=== PATIENT | male | born 1960 | race Caucasian/White ===

== ENCOUNTER 2016-06-12 18:59 | Inpatient (IN) | payer MEDICAID ==
--- NOTE | 2016-06-12 19:40 | EDPHY ---
H & P Stated Complaint: d/c from [facility] w/ MRSA to scrotum/buttocks concerned with drainage Time Seen by Provider: 06/12/16 19:28 HPI/ROS: CHIEF COMPLAINT: Scrotal and rectal abscess HISTORY OF PRESENT ILLNESS: The patient is a 56-year-old homeless man who presents to the emergency department with a scrotal abscess. He was discharged from [facility] where he had spent 2 days being treated with IV vancomycin and discharged today and doxycycline. He did not have any I and D or surgery. He was admitted to this hospital 3 years ago for similar infection. There was some concern for foreign use gangrene but it never developed. He was managed by Urology in the operating room and on IV vancomycin and discharged on doxycycline. He is currently afebrile. REVIEW OF SYSTEMS: Constitutional: denies: chills, fever, recent illness, recent injury EENTM: denies: blurred vision, double vision, nose congestion Respiratory: denies: cough, shortness of breath Cardiac: denies: chest pain, irregular heart rate, lightheadedness, palpitations Gastrointestinal/Abdominal: denies: abdominal pain, diarrhea, nausea, vomiting, blood streaked stools Genitourinary: denies: dysuria, frequency, hematuria, pain Musculoskeletal: denies: joint pain, muscle pain Skin: See HPI Neurological: denies: headache, numbness, paresthesia, tingling, dizziness, weakness Hematologic/Lymphatic: denies: blood clots, easy bleeding, easy bruising Immunologic/allergic: denies: HIV/AIDS, transplant EXAM: GENERAL: Well-appearing, well-nourished and in no acute distress. HEAD: Atraumatic, normocephalic. EYES: Pupils equal round and reactive to light, extraocular movements intact, sclera anicteric, conjunctiva are normal. ENT: TMs normal, nares patent, oropharynx clear without exudates. Moist mucous membranes. NECK: Normal range of motion, supple without lymphadenopathy or JVD. LUNGS: Breath sounds clear to auscultation bilaterally and equal. No wheezes rales or rhonchi. HEART: Regular rate and rhythm without murmurs, rubs or gallops. ABDOMEN: Soft, nontender, normoactive bowel sounds. No guarding, no rebound. No masses appreciated. : Patient has 3 abscesses to his scrotum 1 that is fairly large approximately 3 x 2 cm. Obvious purulent drainage when palpated. Also a the moderately large perirectal abscess. None of these have been drained. BACK: No CVA tenderness, no spinal tenderness, step-offs or deformities EXTREMITIES: Normal range of motion, no pitting or edema. No clubbing or cyanosis. NEUROLOGICAL: Cranial nerves II through XII grossly intact. Normal speech, normal gait. 5/5 strength, normal movement in all extremities, normal sensation PSYCH: Normal mood, normal affect. SKIN: See above Source: Patient Exam Limitations: No limitations - Personal History Current Tetanus/Diphtheria Vaccine: Unsure Current Tetanus Diphtheria and Acellular Pertussis (TDAP): Unsure Tetanus Vaccine Date: < 10 years - Medical/Surgical History Hx Asthma: No Hx Chronic Respiratory Disease: No Hx Diabetes: No Hx Cardiac Disease: No Hx Renal Disease: No Hx Cirrhosis: No Hx Alcoholism: No Hx HIV/AIDS: No Hx Splenectomy or Spleen Trauma: No Other PMH: ortho surg, back surgery, ankle and hand surgery - Family History Significant Family History: No pertinent family hx - Social History Smoking Status: Current some day smoker Alcohol Use: Sober Drug Use: None Constitutional: Initial Vital Signs Temperature (C) 36.3 C 06/12/16 19:01 Heart Rate 101 H 06/12/16 19:01 Respiratory Rate 18 06/12/16 19:01 Blood Pressure 152/95 H 06/12/16 19:01 O2 Sat (%) 96 06/12/16 19:01 O2 Delivery Mode Room Air Allergies/Adverse Reactions: cyclobenzaprine HCl [From Flexeril] Allergy (Intermediate, Verified 06/12/16 21: 54) Hives Home Medications: Medication Instructions Recorded Doxycycline Monohydrate [Monodox] 100 mg PO BID 06/12/16 Medical Decision Making ED Course/Re-evaluation: 7:45 p.m. I spoke with Dr. Christopher Graves who recommended we consult Urology 1st because this was managed by Dr. Bui previously. 8:[address] Graves is here to evaluate. 8:15 p.m. I spoke with Dr. Khai Fuentes who is on-call for Dr. Bui. He suggested admission and consultation tomorrow. 8:[address] Mason's saw the patient and will take to the OR for perianal abscess. He plans to defer to Urology for the scrotal abscess. We will obtain a vancomycin trough prior to administration of antibiotics. 8:[address] Fuentes from Urology about plan to go to the OR tonight. He will consult. Differential Diagnosis: Partial list of the Differential diagnosis considered include but were not limited to; abscess, for knees gangrene, cellulitis and although unlikely based on the history and physical exam, I also considered kidney stone, urinary tract infection. - Data Points Medications Given: Discontinued Medications Tetanus/Diphtheria Toxoids Adsorbed (Tetanus-Diphtheria Tenivac) 0.5 ml IM .ONCE ONE Stop: 06/12/16 21:10 Last Admin: 06/12/16 22:21 Dose: 0.5 ml Departure - Departure Disposition: [facility] Inpatient Acute Clinical Impression: Abscess Condition: Fair
[2016-06-12] MEDS ORDERED: ACETAMINOPHEN 500 MG TAB PO PRN (20:42)
[2016-06-12] MEDS ORDERED: LR 1,000 ML IV SCH (21:00)
--- NOTE | 2016-06-12 21:04 | PDCONSULT ---
Cash Reconciliation Specialist Note: CC: scrotal/perianal abscess HPI: 56 y/o male presented to the ED with worsening scrotal and perianal abscesses. He was admitted to [facility] 06/10 and treated with Vancomycin. A CT of the abdomen/pelvis and scrotal ultrasound were performed. Nasal swabs were + for MRSA. Surgical consultation did not recommend drainage and he was discharged today with oral Doxycycline. He subsequently felt worse and presented to [facility] ED for further care. He was seen by Dr. Mcduffie and surgical consultation was requested. He was admitted here in 2013 for drainage of multiple scrotal abscesses by Dr. Bui that cultured + for MRSA. 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 He does not drive a car and commutes on his bicycle daily ROS: + weight loss + nail gun wound left hand last week denies melena, hematochezia, dysuria, hematuria Patient had a full meal (stopped at [employer]) at 7:00 PE: pleasant, tearful gentleman in mild distress HEENT: negative icterus/adenopathy lungs: clear CVS: RRR abd: soft w/out HSM, tenderness : multiple fluctuant scrotal abscess 1-2 cm, tender with some early drainage rectal: right sharon-anal abscess 2 cm, tender and fluctuant ext: tracks from IVDA L AC/nail gun wound right hand without erythema lab pending Imp: multiple scrotal and sharon-anal abscesses + nasal swab for MRSA prior scrotal abscesses + MRSA IVDA Rec: operative drainage multiple scrotal and sharon-anal abscess Vanco trough IV Invanz ID consult requested/discussed with Dr. Jean Paul Graves MD, FACS
[2016-06-12] MEDS ORDERED: TETANUS, DIPHTHERIA TOX (7YR+) 0.5 ML INJ IM ONE (21:09)
[2016-06-12 22:05] LABS: % IMMATURE GRANULYOCYTES 0.5 % (0.0-1.1); ABSOLUTE IMMATURE GRANULOCYTES 0.05 10^3/uL (0.00-0.10); ADD DIFF? NO; ADD MORPH? NO; ADD SCAN? NO; ATYPICAL LYMPHOCYTE FLAG 10 (0-99); FRAGMENT RBC FLAG 0 (0-99); HEMATOCRIT 44.9 % (40.0-51.0); HEMOGLOBIN 15.6 g/dL (13.7-17.5); LEFT SHIFT FLG 0 (0-99); LIPEMIA HEMOLYSIS FLAG 90 (0-99); MEAN CELL HEMOGLOBIN CONCENTR. 34.7 g/dL (32.4-36.7); MEAN CELL VOLUME 94.9 fL (81.5-99.8); MEAN PLATELET VOLUME 10.5 fL (8.7-11.7); PLATELET CLUMPS FLAG 0 (0-99); PLATELET COUNT 233 10^3/uL (150-400); RED BLOOD CELL COUNT 4.73 10^6/uL (4.40-6.38); RED CELL DISTRIBUTION WIDTH 12.4 % (11.5-15.2)
[2016-06-12 22:18] LABS: ANION GAP 10 mEq/L (8-16); CALCIUM 9.8 mg/dL (8.5-10.4); CARBON DIOXIDE 29 mEq/l (22-31); CHLORIDE 100 mEq/L (97-110); GLOMERULAR FILTRATION RATE > 60; GLUCOSE 102 mg/dL (70-100); POTASSIUM 4.3 mEq/L (3.5-5.2); SODIUM 139 mEq/L (134-144)
[2016-06-12] MEDS: ERTAPENEM 1 GM in NS 100 ML IV SCH (22:20)
[2016-06-13] MEDS ORDERED: PROPOFOL 200 MG/20 ML VIAL ONE (01:04)
[2016-06-13] MEDS ORDERED: fentaNYL 250 MCG/5 ML INJ ONE (01:04)
[2016-06-13] MEDS ORDERED: DEXAMETHASONE 4 MG/ML VIAL ONE (01:05)
[2016-06-13] MEDS ORDERED: ROCURONIUM 50 MG/5 ML VIAL ONE (01:05)
[2016-06-13] MEDS ORDERED: MIDAZOLAM 2 MG/2 ML VIAL ONE (02:15)
[2016-06-13] MEDS ORDERED: GLYCOPYRROLATE 0.2 MG/1 ML VIAL ONE (02:21)
[2016-06-13] MEDS ORDERED: ONDANSETRON 4 MG/2 ML VIAL ONE (02:21)
[2016-06-13] MEDS ORDERED: NEOSTIGMINE METHYLSULFATE 5 MG/5 ML SYR ONE (02:21)
[2016-06-13] MEDS ORDERED: HYDROCODONE/APAP 5/325 TAB PO PRN (03:18)
--- NOTE | 2016-06-13 03:26 | POSTOPPROG ---
Post Op Note Date of Operation: 06/13/16 Surgeon: Matt Graves (, FACS) Anesthesiologist: Gigi Alejandre MD Pre-op Diagnosis: scrotal abscess x 2/sharon-anal abscess Procedure: incision and drainage scrotal abscess x 2d/drainage sharon-rectal abscess Inf/Abcess present in the surg proc area at time of surgery?: Yes Depth: Deep Incisional (Fascial) EBL: Minimal Drains: Other (1/" iodoform packing)
[2016-06-13] MEDS ORDERED: fentaNYL 100 MCG/2 ML INJ ONE (03:30)
[2016-06-13] MEDS ORDERED: LR 1,000 ML IV SCH (03:30)
--- NOTE | 2016-06-13 04:33 | GOP ---
[f rep st] OPERATIVE REPORT DATE OF OPERATION: 06/13/2016 SURGEON: Matt Graves MD ANESTHESIA: General endotracheal. ANESTHESIOLOGIST: Gigi Alejandre MD. PREOPERATIVE DIAGNOSIS: 1. Scrotal abscess x2. 2. Perianal abscess. POSTOPERATIVE DIAGNOSIS: 1. Scrotal abscess x2. 2. Perirectal abscess. PROCEDURE PERFORMED: 1. Incision and drainage of scrotal abscess x2. 2. Incision and drainage of perirectal abscess. FINDINGS: Scrotal abscess and perirectal abscesses containing non foul smelling creamy yellow pus c ultured from the left hemiscrotum and perirectal area, and submitted for aerobes and anaerobes. ESTIMATED BLOOD LOSS: 10 mL. DESCRIPTION OF PROCEDURE: After informed consent was obtained, the patient was brought to the [facility] room and placed under general anesthesia. He was positioned in lithotomy. The genitalia and p erianal regions were prepped with Betadine and draped in a sterile fashion. Before proceeding, a ti me-out and identification of the patient was performed. The patient had 2 large partially draining scrotal abscesses that appeared somewhat chronic, one in the left hemiscrotum and one in the right hemiscrotum; each measured approximately 2 x [address] They were individually incised. The abscess cavity was entered and drained. Loculations were broken down with a curved hemostat. Minor bleeding along the skin edges was controlled with cauter y. The wounds were packed with quarter-inch iodoform gauze. A radial incision was then made over t he perianal abscess and a copious amount of pus drained from this location. The cavity extended int o the ischiorectal fossa and had multiple loculations which were broken down digitally. This absces s cavity as well was packed with quarter-inch Nu Gauze. Digital rectal exam was performed. There w as no fluctuant area or mass within the anorectal region. Upon completion, sterile dressings were applied. The patient was returned to isolation in the [facility] room in satisfactory condition. COMPLICATIONS: None. /[id number]/MODL
[2016-06-13] MEDS: VANCOMYCIN 750 MG in D5W 150 ML IV SCH ×2 (04:53→16:56)
[2016-06-13 05:34] LABS: % IMMATURE GRANULYOCYTES 0.7 % (0.0-1.1); ABSOLUTE IMMATURE GRANULOCYTES 0.06 10^3/uL (0.00-0.10); ADD DIFF? NO; ADD MORPH? NO; ADD SCAN? NO; ATYPICAL LYMPHOCYTE FLAG 10 (0-99); FRAGMENT RBC FLAG 0 (0-99); HEMATOCRIT 43.2 % (40.0-51.0); HEMOGLOBIN 15.2 g/dL (13.7-17.5); LEFT SHIFT FLG 0 (0-99); LIPEMIA HEMOLYSIS FLAG 90 (0-99); MEAN CELL HEMOGLOBIN 33.4 pg (27.9-34.1); MEAN CELL HEMOGLOBIN CONCENTR. 35.2 g/dL (32.4-36.7); MEAN CELL VOLUME 94.9 fL (81.5-99.8); MEAN PLATELET VOLUME 10.4 fL (8.7-11.7); PLATELET CLUMPS FLAG 0 (0-99); PLATELET COUNT 209 10^3/uL (150-400); RED BLOOD CELL COUNT 4.55 10^6/uL (4.40-6.38); RED CELL DISTRIBUTION WIDTH 12.5 % (11.5-15.2)
[2016-06-13 05:48] LABS: ANION GAP 10 mEq/L (8-16); CALCIUM 9.4 mg/dL (8.5-10.4); CARBON DIOXIDE 23 mEq/l (22-31); CHLORIDE 104 mEq/L (97-110); CREATININE 0.9 mg/dL (0.7-1.3); GLOMERULAR FILTRATION RATE > 60; GLUCOSE 134 mg/dL (70-100); POTASSIUM 5.3 mEq/L (3.5-5.2); SODIUM 137 mEq/L (134-144)
[2016-06-13] MEDS: ENOXAPARIN 40 MG/0.4 ML SYR SC SCH (08:33)
[2016-06-13] MEDS: ERTAPENEM 1 GM in NS 100 ML IV SCH (08:33)
--- NOTE | 2016-06-13 08:59 | SOAPPROG ---
Downtime Inpatient MD Late Entry SOAP Note: West is resting comfortably after surgery. His wbc is down/gram stain showed GPC. I requested the previously sent "groin swab" be cancelled as this was collected in the ED and may not represent the true pathogen. Will defer antibiotic therapy to Dr. Reaves. Milagros Graves MD, FACS
--- NOTE | 2016-06-13 12:56 | PCMIDPN ---
Assessment/Plan: Assessment: Multiple scrotal and perirectal abscesses. Patient has had problems in the perineal area with MRSA abscesses in the past. Known to me from 2013. Patient underwent incision and drainage of these abscesses in the [employer] hours today. Covered with both vancomycin ertapenem empirically. Gram-positive cocci on Gram stains. Suspect this is going to be Staph aureus. Will discontinue the ertapenem. Vancomycin monotherapy for now. Will follow cultures. Plan: 1. Discontinue ertapenem. 2. Continue vancomycin. Follow drug levels. 3. Follow surgical recovery. 4. Follow-up operative cultures. Subjective: Patient is resting in his hospital bed. He denies any fevers or chills but he states that he feels somewhat ill after surgery. He has postoperative pain in the perineal and scrotal area. Objective: Vancomycin # 1 ertapenem # 1 Vital Signs Temp Pulse Resp BP Pulse Ox 36.4 C 79 18 111/70 93 06/13/16 11:57 06/13/16 11:57 06/13/16 11:57 06/13/16 11:57 06/13/16 11:57 - Physical Exam General Appearance: WD/WN, alert, no apparent distress, non-toxic Respiratory: lungs clear, normal breath sounds, No respiratory distress Cardiac/Chest: regular rate, rhythm, No tachycardia Skin: normal color, warm/dry, No rash Neuro/Psych: alert, normal mood/affect, oriented x 3 ICD10 Worksheet Patient Problems: Problems Problem Status Onset Abscess Acute Hari gangrene Acute MRSA (methicillin resistant staph aureus) culture positive Acute
[2016-06-14] MEDS: VANCOMYCIN 750 MG in D5W 150 ML IV SCH ×2 (04:24→17:06)
--- NOTE | 2016-06-14 06:14 | SOAPPROG ---
SOAP Progress Note Assessment/Plan: Assessment: s/p drainage sharon-anal and scrotal abscess/final operative cultures pending clinically improved Plan: continue Vanco/check cultures/local care with warm showers discussed wound care 06/14/16 06:12 Subjective: West is resting comfortably/perianal packing fell out during shower Objective: Vital Signs Temp Pulse Resp BP Pulse Ox 36.5 C 96 16 115/75 91 L 06/14/16 04:00 06/14/16 04:00 06/14/16 04:00 06/14/16 04:00 06/14/16 04:00 06/13/16 06/14/16 06/15/16 05:59 05:59 05:59 Intake Total 1890 Balance 1890 Physical Exam - Physical Exam General Appearance: no apparent distress Male Genitalia: other (scrotal abscesses less indurated/purulent drainage with 1 /4" packing) Rectal: other (right lateral sharon-anal incision draining without packing/ decreased erythema and induration) ICD10 Worksheet Patient Problems: Problems Problem Status Onset Abscess Acute Hari gangrene Acute MRSA (methicillin resistant staph aureus) culture positive Acute
[2016-06-14] MEDS: ENOXAPARIN 40 MG/0.4 ML SYR SC SCH (11:25)
--- NOTE | 2016-06-14 14:41 | PCMIDPN ---
Assessment/Plan: Assessment: Multiple scrotal and perirectal abscesses. Patient has had problems in the perineal area with MRSA abscesses in the past. Known to me from 2013. Patient underwent incision and drainage of these abscesses yesterday. Cultures are positive for MRSA. Vancomycin monotherapy for now. Given his significant clinical improvement and his ability to ambulate, would be comfortable letting him discharged on oral doxycycline 100 mg p.o. twice daily for 4 weeks total. Plan: 1. Continue vancomycin until discharge. 2. Doxycycline 100 mg p.o. twice daily x4 weeks upon discharge. 3. Follow-up in office in 1 week time. Subjective: Patient is resting comfortably in his hospital room. He denies any complaint. He states that his perineal area is much improved. He is able to walk around without discomfort. He wants to discharge so he will be able to work. Objective: Vancomycin #2 Vital Signs Temp Pulse Resp BP Pulse Ox 36.5 C 84 16 115/69 93 06/14/16 11:19 06/14/16 11:19 06/14/16 11:19 06/14/16 11:19 06/14/16 11:19 06/13/16 06/14/16 06/15/16 05:59 05:59 05:59 Intake Total 1890 880 Balance 1890 880 - Physical Exam General Appearance: WD/WN, alert, no apparent distress, non-toxic Respiratory: lungs clear, normal breath sounds, No respiratory distress Cardiac/Chest: regular rate, rhythm, No tachycardia Skin: normal color, warm/dry, No rash Neuro/Psych: alert, normal mood/affect, oriented x 3 ICD10 Worksheet Patient Problems: Problems Problem Status Onset Abscess Acute Hari gangrene Acute MRSA (methicillin resistant staph aureus) culture positive Acute
[2016-06-14 15:56] VITALS: BP 123/69; PULSE 86; RESP 18; TEMP 97.5; O2SAT 91
== END 2016-06-14 18:39 | disposition home or self-care (01) | DRG 728 ==
LOC: F3E 22:41 → OBSVTOIN 06-13 08:59
PROVIDERS: ADMIT Surgery; ATTEND Surgery
PROC: 0V953ZZ Drainage of Scrotum, Percutaneous Approach (ICD-10-PCS; principal; 2016-06-13 02:21)
PROC: 0D9P3ZZ Drainage of Rectum, Percutaneous Approach (ICD-10-PCS; principal; 2016-06-13 02:21)
DX: N49.2 Inflammatory disorders of scrotum (principal); K61.1 Rectal abscess; B95.62 Methicillin resistant Staphylococcus aureus infection as the cause of diseases classified elsewhere; Z59.0 Homelessness
CPT/HCPCS: G0378; J1100; J1335; J1650; J2250; J2405; J2704; J2710; J3010; J3370